=== PATIENT | female | born 1980 | race Caucasian/White ===

== ENCOUNTER 2017-01-11 10:17 | Emergency (ER) | payer MEDICAID, OTHER ==
[~2017-01-11] VITALS: Ht 170.2 cm; Wt 77.1 kg
[2017-01-11] MEDS ORDERED: BUSP15TA47 PO (10:33)
[2017-01-11] MEDS ORDERED: ACET500T37 PO (10:33)
[2017-01-11] MEDS ORDERED: CYMB60CA3 PO (10:33)
[2017-01-11] MEDS ORDERED: CYMB1CAP5 PO (10:33)
[2017-01-11] MEDS ORDERED: NORCO, ANEXSIA 5/325MG TABLET (HYDROcodone/ACETAMINOPHEN) PO ONE (11:30)
[2017-01-11] MEDS ORDERED: HYDR-3713 PO (11:45)
[2017-01-11 11:58] VITALS: BP 159/95
--- NOTE | 2017-01-11 11:59 | REP ---
LEFT FOOT: Four views of the left foot are performed. There is a transverse fracture at the base of the 5th metatarsal. I see no other evidence of acute fracture, dislocation, or intrinsic bone disease. IMPRESSION: Nondisplaced fracture base of 5th metatarsal. Signed by Eren Gonzalez MD 01/12/2017 05:11 P
== END 2017-01-11 12:46 | disposition home or self-care (01) ==
LOC: M ED 11:31
DX: S92.355A Nondisplaced fracture of fifth metatarsal bone, left foot, initial encounter for closed fracture (principal); W22.8XXA Striking against or struck by other objects, initial encounter; Y92.410 Unspecified street and highway as the place of occurrence of the external cause; Y93.01 Activity, walking, marching and hiking; Y99.8 Other external cause status; F17.200 Nicotine dependence, unspecified, uncomplicated; Z88.6 Allergy status to analgesic agent; Z91.030 Bee allergy status; Z79.899 Other long term (current) drug therapy

== ENCOUNTER → 2018-08-13 | Outpatient (REF) | payer OTHER ==
[2018-08-14 00:13] LABS: CHLAMYDIA DNA AMPLIFICATION NEGATIVE (NEGATIVE); GC DNA AMPLIFICATION NEGATIVE (NEGATIVE)
[2018-08-14 11:16] LABS: HIV 1&2 SCREEN CENTAUR NEGATIVE (NEGATIVE)
[2018-08-15 10:12] LABS: HSV TYPE II IgG SPECIFIC <0.91 index (0.00-0.90)
== END ==
LOC: M SFHCLERA 17:39
DX: R30.0 Dysuria (principal); Z11.3 Encounter for screening for infections with a predominantly sexual mode of transmission

== ENCOUNTER → 2021-09-14 | Outpatient (CLI) | payer OTHER ==
[~2021-09-14] MED LIST: ACET-683 PO; BUSP15TA47 PO; BUTA-198 PO; CYMB1CAP5 PO; CYMB60CA4 PO; HYDR-3713 PO; ONDA8TAB8 PO; PANT40TA29 PO; SENN-80 PO; TIZA4TAB4 PO; TOPI50TA9 PO
== END ==
LOC: M LABSMTC 09:21
PROVIDERS: ATTEND Anesthesiology
DX: Z01.818 Encounter for other preprocedural examination (principal); Z11.52 Encounter for screening for COVID-19

== ENCOUNTER → 2022-01-04 | Outpatient (REF) | payer OTHER ==
[~2022-01-04] MED LIST changes: +TIZA10TA PO; -TIZA4TAB4 PO
== END ==
LOC: M LAB REF 21:09
PROVIDERS: ATTEND Physician Assistant
DX: R50.9 Fever, unspecified (principal)

== ENCOUNTER → 2022-07-11 | Outpatient (CLI) | payer OTHER | LOC: M RAD 15:30 | PROVIDERS: ATTEND Physician Assistant | DX: R00.2 Palpitations (principal) ==

== ENCOUNTER → 2024-08-15 | Outpatient (CLI) | payer OTHER ==
[~2024-08-15] MED LIST changes: +ONDA-284 PO; -ONDA8TAB8 PO; +SENN-186 PO; -SENN-80 PO; +TOPI-21 PO; -TOPI50TA9 PO
== END ==
LOC: M PLAIMG 14:52 → M PLALAB 14:52
DX: M54.50 Low back pain, unspecified (principal)